=== PATIENT | female | born 1975 | race Caucasian/White ===

== ENCOUNTER 2016-12-10 11:14 | Day surgery (SDC) | payer BC ==
[2016-12-02 14:01] LABS: BASOPHILS 0.3 %; BASOPHILS ABSOLUTE 0.03 10/3/uL (0.0-0.16); EOSINOPHILS 1.9 %; EOSINOPHILS ABSOLUTE 0.19 10/3/uL (0.0-0.53); HEMOGLOBIN 11.3 g/dL (12.0-16.0); IMMATURE GRANULOCYTES 0.2 %; IMMATURE GRANULOCYTES ABSOLUTE 0.02 10/3/uL (0.0-0.11); LYMPHOCYTES 28.4 %; MEAN CORPUS HGB CONC 31.9 g/dL (32.0-36.0); MEAN PLATELET VOLUME 8.8 fL (9.2-13.0); MONOCYTES 5.9 %; NEUTROPHILS 63.3 %; NEUTROPHILS ABSOLUTE 6.46 10/3/uL (2.02-8.40); RED CELL COUNT 4.96 10/6/uL (4.0-5.6); WHITE BLOOD CELLS 10.2 10/3/uL (4.5-10.5)
[2016-12-02 14:03] LABS: HEMATOCRIT 35.4 % (36.0-48.0); MEAN CORPUSCULAR HEMOGLOB 22.8 pg (26.0-34.0); MEAN CORPUSCULAR VOLUME 71.4 fL (80-100); PLATELET COUNT 458 10/3/uL (150-400); RBC DISTRIBUTION WIDTH 16.3 % (12.0-16.0)
[2016-12-02 14:04] LABS: MANUAL DIFF NO %
[2016-12-02 14:13] LABS: PARTIAL THROMBO TIME 27.6 SEC (22.5-37.2); PROTIME (NOT ORD) 13.1 SEC (12.0-14.5)
[2016-12-02 14:37] LABS: PFA (COL/EPI) 171 SEC (72-180)
--- NOTE | ~2016-12-10 | OP ---
Record Of Operation [facility] [address] [place]. [address] NAME: DAFNE HENDERSON : 73 STATUS : [facility]#: [id number] AGE: 41 ADM/REG DATE : 12/10/16 MR#: [id number] REPORT SERV DATE: 12/11/16 DICTATED BY: LOTUS MANNING DATE: 12/11/16 REPORT STATUS : Draft TRANSCRIBED BY: GILMER DATE: 12/11/16 DATE OF PROCEDURE: 12/10/2016 PREOPERATIVE DIAGNOSIS: Surgical absence of the breast. POSTOPERATIVE DIAGNOSIS: Surgical absence of the breast. PROCEDURE: Bilateral tissue expansion, exchanged to definitive 620 MH implants. INDICATIONS AND FINDINGS OF THE PROCEDURE: This middle-aged female is status post an auto augmentation type mastectomy. She is appropriate for the above-described operative intervention. DETAILS OF THE PROCEDURE: The patient was brought to the operating room after adequate sedation was achieved, she was prepped and draped in the usual sterile fashion for the above described procedure. First, our attention was turned to the right. A 6 cm excision of old inframammary crease scar was carried out and dissection was carried down to the level of the tissue scrap burner. This was ruptured and removed. A superior capsulotomy was carried out and she was then thoroughly irrigated with Hibiclens solution and inferior drain was placed. The 620 MH implant was then placed into the site. This was manipulated into an appropriate position and the wounds were then closed with a deep layer of 3-0 Vicryl and multiple layers of Monocryl through to an intracuticular skin. Identical procedure was then carried out contralaterally. Again the scar was excised. The capsule was entered. The tissue scrap burner was ruptured, removed. A superior capsulotomy was carried out and inferior drain was placed. She was irrigated. A 620 MH implant was placed, manipulated into appropriate position, and she was closed with multiple layers of Monocryl and Vicryl through to an intracuticular skin. She was cleansed with peroxide and operative bra was placed. The drains were set to suction and she was remanded to the recovery room in stable condition. All sponge and needle counts were correct. ADELINE Lotus Manning M.D. / [id number] CC: Linda Velasquez
[~2016-12-10 11:14] MED LIST: AT25 PO; K500 PO; MULTIPLE VIT PO; MULTIVIT/MIN PO; PERCOCET1 TA2 PO; PR25 PO; WELLXL150 PO; WESTHROID PO
[2017-03-04] MEDS ORDERED: FERROUS SULF325 M1 PO (13:40)
[2017-03-04] MEDS ORDERED: MULTIPLE VIT PO (13:41)
== END 2016-12-10 17:19 | disposition home or self-care (01) ==
LOC: SDC 11:14
PROVIDERS: Surgery Surgery of the Hand
PROC: 0HPT0NZ Removal of Tissue Expander from Right Breast, Open Approach (ICD-10-PCS; 2016-12-10)
PROC: 0HRV0JZ Replacement of Bilateral Breast with Synthetic Substitute, Open Approach (ICD-10-PCS; 2016-12-10)
PROC: 0HPU0NZ Removal of Tissue Expander from Left Breast, Open Approach (ICD-10-PCS; principal; 2016-12-10 13:30)
DX: Z45.812 Encounter for adjustment or removal of left breast implant (principal); E03.9 Hypothyroidism, unspecified; F41.9 Anxiety disorder, unspecified; F32.9 Major depressive disorder, single episode, unspecified; Z88.8 Allergy status to other drugs, medicaments and biological substances; Z85.3 Personal history of malignant neoplasm of breast; Z45.811 Encounter for adjustment or removal of right breast implant; Z79.899 Other long term (current) drug therapy; Z87.442 Personal history of urinary calculi; Z98.890 Other specified postprocedural states
CPT/HCPCS: 84703; 85025; 85576; 85610; 85730; A9270-GY; C1769; C1789; J0690; J1885; J2250; J2270; J2405; J3010

== ENCOUNTER 2017-03-11 06:35 | Day surgery (SDC) | payer BC ==
[2017-03-08 16:11] LABS: BASOPHILS 0.4 %; BASOPHILS ABSOLUTE 0.04 10/3/uL (0.0-0.16); EOSINOPHILS 2.2 %; EOSINOPHILS ABSOLUTE 0.21 10/3/uL (0.0-0.53); HEMATOCRIT 37.8 % (36.0-48.0); HEMOGLOBIN 12.3 g/dL (12.0-16.0); IMMATURE GRANULOCYTES 0.1 %; IMMATURE GRANULOCYTES ABSOLUTE 0.01 10/3/uL (0.0-0.11); LYMPHOCYTES 29.3 %; LYMPHOCYTES ABSOLUTE 2.75 10/3/uL (0.67-4.30); MANUAL DIFF NO %; MEAN CORPUS HGB CONC 32.5 g/dL (32.0-36.0); MEAN CORPUSCULAR HEMOGLOB 25.1 pg (26.0-34.0); MEAN CORPUSCULAR VOLUME 77.1 fL (80-100); MEAN PLATELET VOLUME 9.6 fL (9.2-13.0); MONOCYTES 7.6 %; MONOCYTES ABSOLUTE 0.71 10/3/uL (0.21-1.20); NEUTROPHILS 60.4 %; NEUTROPHILS ABSOLUTE 5.68 10/3/uL (2.02-8.40); PLATELET COUNT 328 10/3/uL (150-400); RBC DISTRIBUTION WIDTH 19.9 % (12.0-16.0); WHITE BLOOD CELLS 9.4 10/3/uL (4.5-10.5)
[2017-03-08 16:21] LABS: PARTIAL THROMBO TIME 27.5 SEC (22.5-37.2); PROTIME (NOT ORD) 12.7 SEC (12.0-14.5)
[2017-03-08 16:36] LABS: PFA (COL/EPI) 161 SEC (72-180)
--- NOTE | ~2017-03-11 | OP ---
Record Of Operation [facility] [address] [place]. [address] NAME: DAFNE HENDERSON : 73 STATUS : [facility]#: [id number] AGE: 42 ADM/REG DATE : 03/11/17 MR#: [id number] REPORT SERV DATE: 03/12/17 DICTATED BY: LOTUS MANNING DATE: 03/12/17 REPORT STATUS : Draft TRANSCRIBED BY: GILMER DATE: 03/12/17 DATE OF PROCEDURE: 03/11/2017 PREOPERATIVE DIAGNOSIS: Surgical absence of the breast. Breast deformity post breast reconstruction and mastectomy. POSTOPERATIVE DIAGNOSIS: Surgical absence of the breast. Breast deformity post breast reconstruction and mastectomy. PROCEDURE: Bilateral fat grafting to correct deformity. INDICATIONS AND FINDINGS OF THE PROCEDURE: This 42-year-old female presents after a bilateral Passot-type reconstruction with 5th generation silicone implant. She has concave deformities, particularly at the superior and superolateral aspect of her breast reconstruction. She is appropriate for the above-described operative intervention. DETAILS OF THE PROCEDURE: The patient was brought to the operating room, and after adequate sedation was achieved, she was prepped and draped in usual sterile fashion for the above- described procedure. First, our attention was turned to the abdomen. Approximately 250 mL wetting solution was then infiltrated through a small stab incision into the central abdominal fatty envelope. Then, approximately 300 mL of fatty aspirate was removed to a revolve the apparatus. The fat was treated appropriately, transferred into 10 mL syringes and then, approximately 125 mL of fat was then injected subcutaneously into a topographical map placed on the breast before surgery through small stab incisions. With completion of the procedure, the contour deformities were substantially corrected. With this completed, she was cleansed with peroxide. The injection and aspiration incisions were closed with 5-0 fast-absorbing gut and she was dressed with dry dressing and remanded to the recovery room in stable condition. All sponge and needle counts were correct. UMA/GILMER Lotus Manning M.D. / [id number] CC: Lotus BrLinda maher Katrina V.
[~2017-03-11 06:35] MED LIST changes: +FERROUS SULF325 M1 PO
== END 2017-03-11 16:21 | disposition home or self-care (01) ==
LOC: SDC 06:35
PROVIDERS: Surgery Surgery of the Hand
PROC: 0HRV07Z Replacement of Bilateral Breast with Autologous Tissue Substitute, Open Approach (ICD-10-PCS; principal; 2017-03-11 07:45)
DX: N65.0 Deformity of reconstructed breast (principal); Z80.3 Family history of malignant neoplasm of breast; Z85.3 Personal history of malignant neoplasm of breast; Z98.890 Other specified postprocedural states; Z88.5 Allergy status to narcotic agent; Z90.13 Acquired absence of bilateral breasts and nipples
CPT/HCPCS: 84703; 85025; 85576; 85610; 85730; A9270-GY; J0690; J2250; J2270; J2405; J3010